=== PATIENT | male | born 1995 | race Caucasian/White ===

== ENCOUNTER 2019-08-14 03:57 | Emergency (ER) | payer BC, OTHER ==
[2019-08-14] MEDS ORDERED: Diphtheria,Pertussis(Acell),Tetanus Vaccine 0.5 ML Syringe IM ONE (04:11)
--- NOTE | 2019-08-14 04:31 | CR ---
Indication: Crushed and 2 days prior Technique: Three views of the right hand Comparison: None Findings/Impression: There is irregularity of the distal tip of the 4th distal phalanx with multiple adjacent ossific fragments, likely representing comminuted fracture due to crush injury. Subcutaneous edema is noted in the distal 4th finger. No additional fractures demonstrated. Dictated by Wesly Gao MD @ Aug 14 2019 4:29AM Signed by Dr. Wesly Gao @ Aug 14 2019 4:29AM
[2019-08-14] MEDS ORDERED: Cephalexin 500 MG Cap PO ONE (05:29)
--- NOTE | 2019-08-14 05:33 | EDM.PDOC ---
ED HPI GENERAL MEDICAL PROBLEM - General Chief Complaint: Upper Extremity Injury/Pain Stated Complaint: SMASHED FINGERS ON RT HAND Time Seen by Provider: 08/14/19 04:05 - History of Present Illness INITIAL COMMENTS - FREE TEXT/NARRATIVE: HPI 24-year-old male presents for evaluation of ongoing pain, tenderness, and swelling of his right 3rd and 4th finger tips after pinching them two days prior. Tetanus not up-to-date. ROS with no recent constitutional symptoms. Exam Gen: Pleasant, nontoxic-appearing, resting comfortably. HEENT: NC, AT, PEERL, EOMI. Resp: Unlabored respirations with a normal work of breathing. Card: Extremities warm and well perfused. GI: Non-distended. : Deferred MSK: right hand visually normal with the exception of the 3rd and 4th finger tips. 3rd finger tip with an approximately 6 mm in diameter flaccid blisters on the lateral aspect of the fingertip, brisk distal capillary refill. 4th finger with a subungual hematoma, mild nail bed displacement, and on the opposing pad there is approximately 3 mm long longitudinally oriented laceration. Fingertip with diffuse swelling, no erythema, warmth, or fluctuance. Sensation intact to touch. Brisk capillary refill. Neuro: alert and oriented 3, no facial asymmetry, vision and hearing WNL. Heme/Lymph: Deferred Skin: Normal color with no visible lesions (other than noted above). Psych: Mood and affect appropriate. XR R hand: there is a regularity the distal tip of the 4th distal phalanx with multiple adjacent ossific fragments, likely representing comminuted fracture due to crush injury. Subcutaneous edema is noted in the distal 4th finger. No additional fractures identified. MDM Previous chart, nursing note, and vitals reviewed. A: 24-year-old male presents for evaluation of ongoing pain, tenderness, and swelling of his left 3rd and 4th finger tips after pinching them two days prior. DDx & Evaluation: CMS intact, patient with a comminuted 4th finger tip open tuft fracture. Discussed management options with patient. As there is a delayed presentation primary closures not indicated, nail removal discussed with patient , patient would prefer to have nail not be removed and be allowed to naturally fall off. No evidence of infection, however given the open nature the fracture cephalexin was prescribed. 4th finger splinted with an aluminum foam finger splint. Patient to follow up with orthopedics. Tdap booster given. Impression: right 4th finger open tuft fracture. 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: Reports: NSAIDS right hand Pain Score (Numeric/FACES): 6 - Related Data Allergies Allergy/AdvReac Type Severity Reaction Status Date / Time No Known Allergies Allergy Verified 08/14/19 04:01 Home Meds: Home Meds Cephalexin [Keflex] 500 mg PO QID #39 capsule 08/14/19 [Rx] Past Medical History - Past Health History Medical/Surgical History: Denies Medical/Surgical History Social & Family History - Family History Family Medical History: Noncontributory - Tobacco Use Smoking Status *Q: Never Smoker - Recreational Drug Use Recreational Drug Use: No Review of Systems - Review of Systems Review Of Systems: See Below ED EXAM, GENERAL - Physical Exam Exam: See Below Course - Vital Signs Last Recorded V/S: Last Vital Signs Temp 36.4 C 08/14/19 04:00 Pulse 84 08/14/19 04:00 Resp 18 08/14/19 04:00 BP 123/65 08/14/19 04:00 Pulse Ox 97 08/14/19 04:00 - Orders/Labs/Meds Orders: Active Orders 24 hr Category Date Time Status Vaccines to be Administered [RC] PER UNIT ROUTINE Care 08/14/19 04:11 Active Meds: Medications Discontinued Medications Generic Name Dose Route Start Last Admin Trade Name Walter PRN Reason Stop Dose Admin Cephalexin 500 mg 08/14/19 05:29 Keflex PO 08/14/19 05:30 ONETIME ONE Diphtheria/Tetanus/Acell Pertussis 0.5 ml 08/14/19 04:11 08/14/19 04:23 Adacel IM 08/14/19 04:12 0.5 ml .ONCE ONE Administration Departure - Departure Time of Disposition: 05:31 Disposition: Home, Self-Care 01 Clinical Impression: Open fracture of tuft of distal phalanx of finger - Discharge Information Prescriptions: Cephalexin [Keflex] 500 mg PO QID #39 capsule Referrals: Jesus Saldaña MD [Primary Care Provider] - Additional Instructions: You were in seen in the [facility] Emergency Department for evaluation of injuries to your right 3rd and 4th finger. Your found to have a fracture of the fingertip on your 4th finger. Please keep these wounds clean, dry, and continued to use the provided splint. You have been prescribed cephalexin and should take this for times daily for the next 10 days. Please follow-up in 1-[address] Arshad, the orthopedic surgeon pinion staker. Please contact Dr. Waite office using the information below. Please read and follow all of the instructions below. [facility] [address] [facility], [address], [place] [address] Please follow up with your primary care physician as needed. When calling for follow-up care, please make the office aware that this follow-up is from your recent emergency room visit. If for any reason you are refused follow-up, please contact the [facility] Emergency Department at and asked to speak to the emergency department charge nurse. Your care today was limited to identifying and treating emergent medical problems only. Many people have subtle differences in their test results that require follow up with their outpatient physician(s) to correctly determine if this represents a normal variation or concerning abnormality with respect to your specific health. The care given to you today was limited to identifying and treating emergent medical problems - you need to request a copy of all of your medical records from today's visit and follow up with your outpatient physician(s) to review both today's visit and your overall health. If you have any new symptoms or if you are at all concerned about your health please return immediately to the emergency department. You make take over the counter Acetaminophen (Tylenol) and Ibuprofen (Motrin or Aleve) as directed below for relief of pain. Take 600 mg of ibuprofen (three 200 mg tablets) with a glass of water every 6-8 hours as needed for pain or fever. Do not take if you have ulcers, GI bleeding, are , or are allergic to ibuprofen. Take 1,000 mg of acetaminophen (two 500 mg tablets) with a glass of water every 6-8 hours as needed for pain. Do not take if you are allergic to acetaminophen. If you have liver disease, please reduce your dose to a maximum of 2,000 mg per day. You can take these medications at the same time or on separate schedules. Do not take for more than 10 days. Do not take with alcohol or other acetaminophen containing medications. This medication may cause a mildly upset stomach, if so take it with a small snack. Stop taking it if you have persistent abdominal pain, heartburn, or any stomach pain. Do not take this medication if you have known ulcers. Please read the warnings at the end of this document regarding these medications. IBUPROFEN WARNING: This drug may infrequently cause serious (rarely fatal) bleeding from the stomach or intestines. Also, related drugs rarely have caused blood clots to form, resulting in heart attacks and strokes. This medication might also rarely cause similar problems. Talk to your doctor or pharmacist about the benefits and risks of treatment, as well as other possible medication choices. If you notice any of the following rare but very serious side effects, stop taking ibuprofen and seek immediate medical attention: black stools, persistent stomach/abdominal pain, vomit that looks like coffee grounds, chest pain, weakness on one side of the body, sudden vision changes, slurred speech. IBUPROFEN SIDE EFFECTS: Upset stomach, nausea, vomiting, heartburn, headache, diarrhea, constipation, drowsiness, and dizziness may occur. If any of these effects persist or worsen, notify your doctor or pharmacist promptly. If your doctor has directed you to use this medication, remember that he or she has judged that the benefit to you is greater than the risk of side effects. Many people using this medication do not have serious side effects. Tell your doctor immediately if any of these serious side effects occur: stomach pain, swelling of the hands or feet, sudden or unexplained weight gain, ringing in the ears ( tinnitus). Tell your doctor immediately if any of these unlikely but serious side effects occur: vision changes, rapid or pounding heartbeat, easy bruising or bleeding, difficult/painful swallowing. Tell your doctor immediately if any of these highly unlikely but very serious side effects occur: change in amount of urine, severe headache, very stiff neck, mental/mood changes, persistent sore throat or fever. This drug may rarely cause serious (possibly fatal) liver disease. If you notice any of the following highly unlikely but very serious side effects, stop taking ibuprofen and consult your doctor or pharmacist immediately: yellowing eyes and skin, dark urine, unusual/extreme tiredness. An allergic reaction to this drug is unlikely, but seek immediate medical attention if it occurs. Symptoms of an allergic reaction include: rash, itching/ swelling (especially of the face/tongue/throat), severe dizziness, trouble breathing. This is not a complete list of possible side effects. ACETAMINOPHEN SIDE EFFECTS: This drug usually has no side effects. If you do not have liver problems, the maximum dose of acetaminophen for adults is 4 grams per day (4000 milligrams). Taking more than the maximum daily amount may cause serious (possibly fatal) liver damage. Get medical help right away if you have any of the following symptoms of liver damage: persistent nausea/vomiting, extreme tiredness, stomach/abdominal pain, yellowing eyes/skin, dark urine. If you have liver problems, consult your doctor or pharmacist for a safe dosage of this medication. A very serious allergic reaction to this drug is rare. However , get medical help right away if you notice any symptoms of a serious allergic reaction, including: rash, itching/swelling (especially of the face/tongue/ throat), severe dizziness, trouble breathing. This is not a complete list of possible side effects. If you notice other effects not listed above, contact your doctor or pharmacist. DRUG INTERACTIONS: Your healthcare professionals (e.g., doctor or pharmacist) may already be aware of any possible drug interactions and may be monitoring you for it. Do not start, stop or change the dosage of any medicine before checking with them first. This drug should not be used with the following medications because very serious interactions may occur: cidofovir, ketorolac. If you are currently using any of these medications listed above, tell your doctor or pharmacist before starting ibuprofen. Before using this medication, tell your doctor or pharmacist of all prescription and nonprescription/herbal products you may use, especially of: anti-platelet drugs (e.g., cilostazol, clopidogrel), oral bisphosphonates (e.g., alendronate), other medications for arthritis (e.g., aspirin, methotrexate), "blood thinners" (e.g., enoxaparin, heparin, warfarin), corticosteroids (e.g., prednisone), cyclosporine, desmopressin, high blood pressure drugs (including HUSSEIN inhibitors such as captopril, angiotensin II receptor antagonists such as losartan, and beta- blockers such as metoprolol), lithium, pemetrexed, "water pills" (diuretics such as furosemide, hydrochlorothiazide, triamterene). Check all prescription and nonprescription medicine labels carefully for other pain/fever drugs ( NSAIDs such as aspirin, celecoxib, naproxen). These drugs are similar to ibuprofen, so taking one of these drugs while also taking ibuprofen may increase your risk of side effects. Consult your doctor or pharmacist for more details. However, if your doctor has prescribed low doses of aspirin to prevent heart attack or stroke (usually at dosages of 81-325 milligrams a day), you should continue to take the aspirin. Daily use of ibuprofen may decrease aspirin 's ability to prevent heart attack/stroke. Talk to your doctor about using a different medication (e.g., acetaminophen) to treat pain/fever. If you must take ibuprofen, talk to your doctor about possibly taking immediate-release aspirin (not enteric-coated) while also taking the ibuprofen dose apart from your aspirin dose. Do not increase your daily dose of aspirin or change the way you take aspirin/other medications without your doctor's approval. This document does not contain all possible interactions. Therefore, before using this product, tell your doctor or pharmacist of all the products you use. Keep a list of all your medications with you, and share the list with your doctor and pharmacist. Cephalexin (Brand Name: Keflex) Take as directed on the prescription. Take the full prescribed course of medications. SIDE EFFECTS: Diarrhea, dizziness, headache, or stomach upset may occur. If any of these effects persist or worsen, tell your doctor or pharmacist promptly. Tell your doctor immediately if any of these rare but very serious side effects occur: severe stomach/abdominal pain, persistent nausea/vomiting, yellowing eyes /skin, dark urine, change in the amount of urine, new signs of infection (e.g., fever, persistent sore throat), easy bruising/bleeding, mental/mood changes ( e.g., agitation, confusion). This medication may rarely cause a severe intestinal condition (Clostridium difficile-associated diarrhea) due to a resistant bacteria. This condition may occur during treatment or weeks to months after treatment has stopped. Tell your doctor immediately if you develop persistent diarrhea, abdominal or stomach pain/cramping, blood/mucus in your stool. Do not use anti-diarrhea products or narcotic pain medications if you have any of these symptoms because these products may make them worse. Use of this medication for prolonged or repeated periods may result in oral thrush or a new vaginal yeast infection. Contact your doctor if you notice white patches in your mouth, a change in vaginal discharge, or other new symptoms. A very serious allergic reaction to this drug is rare. However, seek immediate medical attention if you notice any symptoms of a serious allergic reaction, including: rash, itching/swelling (especially of the face/tongue/throat), severe dizziness , trouble breathing. This is not a complete list of possible side effects. If you notice other effects not listed above, contact your doctor or pharmacist. PRECAUTIONS: Before taking cephalexin, tell your doctor or pharmacist if you are allergic to it; or to penicillins or other cephalosporins (e.g., cefpodoxime ); or if you have any other allergies. This product may contain inactive ingredients, which can cause allergic reactions or other problems. Talk to your pharmacist for more details. Before using this medication, tell your doctor or pharmacist your medical history, especially of: kidney disease, stomach/ intestinal disease (e.g., colitis). This drug may make you dizzy. Do not drive, use machinery, or do any activity that requires alertness until you are sure you can perform such activities safely. Limit alcoholic beverages. The liquid form of this product may contain sugar. Caution is advised if you have diabetes. Ask your doctor or pharmacist about using this product safely. Kidney function declines as you grow older. This medication is removed by the kidneys. Therefore, older adults may be at greater risk for side effects while using this drug. During , this medication should be used only when clearly needed. Discuss the risks and benefits with your doctor. This medication passes into breast milk. Consult your doctor before breast-feeding. DRUG INTERACTIONS: Your doctor or pharmacist may already be aware of any possible drug interactions and may be monitoring you for them. Do not start, stop, or change the dosage of any medicine before checking with them first. Before using this medication, tell your doctor or pharmacist of all prescription and nonprescription/herbal products you may use, especially of: vaccines that contain live bacteria (e.g., typhoid, BCG), metformin, probenecid. This medication may decrease the effectiveness of combination-type control pills. This can result in . You may need to use an additional form of reliable control while using this medication. Consult your doctor or pharmacist for details. This medication may interfere with certain laboratory tests (including Lu' test, certain urine glucose tests), possibly causing false test results. Make sure laboratory personnel and all your doctors know you use this drug. This document does not contain all possible interactions. Therefore, before using this product, tell your doctor or pharmacist of all the products you use. Keep a list of all your medications with you, and share the list with your doctor and pharmacist. Prescriptions: If you are uninsured or have financial difficulties with filling your prescription(s), you may consider using a free pharmacy discount service such as [employer] ([employer]) or [employer] ([employer]). These services allow you to search for a medication on your phone (or computer) and obtain a coupon that usually has a significant discount from the list galvan at a pharmacy. Your physician as well as [facility] does not have a financial relationship with either of these services. You may also wish to speak with your physician to determine if lower cost prescriptions are possible. Obtaining primary care: 1. [facility] provides pediatrics (children), family medicine (children, adults, and some obstetrical care), and internal medicine (adults). Further specialty care is also available. Same day appointments are available. They may be contacted at [phone] and are open Thursday through Thursday 8 AM to 5 PM. The [facility] are located at [facility], [address] [place] [address]. 2. [facility] offers family medicine, internal medicine, [facility], and further specialty care. [facility] may be contacted at [phone]. [facility] is located at [address] [place], [address]. 3. If you have health insurance, please also contact your insurer for a list of accepting providers under your policy, you may contact these providers for further health care. Occupational health: Work related injuries may consider following up with [facility], . Occupational health services are located at [address] [place] [phone] and are open Thursday through Thursday from 7: 30 am to 5:00 pm. Obstetrical and Gynecological Care: [facility], , Thursday through Thursday 8 AM to 5 PM. [address] [place] [phone]. Eyecare: If you have an eye injury you should follow up with your silver buffer or with [facility], at [phone] or [phone] , they are located at [address] [place] [address]. Dental Care Seth Romero DDS. [address] [facility].[place], [place]. Ph. [phone] Eyad Romero DDS MS. [address] [facility] [address], [place], [place]. Ph. Ed Waller DDS. 10 08/[address] [place] [address]. Ph. [phone] Dale Pineda DDS. [address] [facility] 4 [place], [place]. Ph. [phone] Carlos Ulrich DDS PC. [address] [facility] [address] [place], [place]. Ph. Scott Rosenbaum DDS. [address] [facility]. Ph. [phone] [facility]. [address] [place], [place]. Ph. [phone] [facility]. [address] [place] [address], [place], [place]. Ph. [phone] [facility] [address] [place] [phone]. Ph. [facility]. [address] [place] [address] [address]. [place], [place]. Ph. [phone] [facility]. [address] [place], [place]. Ph. Sepsis Event Note - Evaluation Sepsis Screening Result: No Definite Risk - Focused Exam Vital Signs: Vital Signs Temp Pulse Resp BP Pulse Ox 08/14/19 04:00 36.4 C 84 18 123/65 97 Date Exam was Performed: 08/14/19 Time Exam was Performed: 05:31 - My Orders Last 24 Hours: My Active Orders 08/14/19 04:11 Vaccines to be Administered [RC] PER UNIT ROUTINE - Assessment/Plan Last 24 Hours: My Active Orders 08/14/19 04:11 Vaccines to be Administered [RC] PER UNIT ROUTINE
== END 2019-08-14 06:05 | disposition home or self-care (01) ==
LOC: MW.ED 03:57
DX: S62.634A Displaced fracture of distal phalanx of right ring finger, initial encounter for closed fracture (principal); Z23 Encounter for immunization; W23.0XXA Caught, crushed, jammed, or pinched between moving objects, initial encounter
CPT/HCPCS: 73130; 90471; 90715; 99283; A9270